=== PATIENT | male | born 1990 | race Caucasian/White ===

== ENCOUNTER 2024-06-28 10:24 | Emergency (ER) | payer OTHER ==
[~2024-06-28] VITALS: Ht 185.4 cm; Wt 143.2 kg
[2024-06-28 10:30] VITALS: TEMP 98.3
[2024-06-28] MEDS ORDERED: EMPA10TA3 PO (10:31)
[2024-06-28] MEDS ORDERED: SACU1TAB7 PO (10:31)
[2024-06-28] MEDS ORDERED: SPIR-37 PO (10:31)
[2024-06-28] MEDS ORDERED: METO200T37 PO (10:31)
[2024-06-28] MEDS ORDERED: BUME2TAB5 PO (10:31)
[2024-06-28 12:04] LABS: BASOPHILS % (AUTO) 0.3 % (0.0-2.0); EOSINOPHILS % (AUTO) 0.3 % (1.0-6.0); HEMATOCRIT 48.6 % (41-53); HEMOGLOBIN 16.2 g/dL (13.5-17.5); LYMPHOCYTES % (AUTO) 13.3 % (22.0-44.0); MEAN CORPUSCULAR HEMOGLOBIN 28.3 pg (26.0-34.0); MEAN CORPUSCULAR HGB CONC 33.3 G/dL (31.0-37.0); MEAN CORPUSCULAR VOLUME 85 fL (80-100); MONOCYTES # (AUTO) 1.3 K/uL (0.1-1.0); MONOCYTES % (AUTO) 8.2 % (2.0-9.0); NEUTROPHILS # (AUTO) 11.9 K/uL (1.8-7.7); NEUTROPHILS % (AUTO) 77.9 % (40.0-70.0); PLATELET COUNT (AUTO) 295 K/uL (150-450); RED BLOOD CELL COUNT(AUTO) 5.72 MIL/uL (4.50-5.90); RED CELL DISTRIBUTION WIDTH 14.6 % (11.5-14.5); WHITE BLOOD COUNT (AUTO) 15.3 K/uL (4.5-11.0)
[2024-06-28 12:14] LABS: ANION GAP 6 mmol/L (8-16); CALCIUM, TOTAL 8.8 mg/dL (8.8-10.5); CARBON DIOXIDE 32 mmol/L (22-29); CHLORIDE 96 mmol/L (98-107); GLOMERULAR FILTR. RATE CALC > 60 mL/min (>60); GLUCOSE,RANDOM 94 mg/dL (70-110); POTASSIUM 3.1 mmol/L (3.5-5.1); SODIUM SERUM 134 mmol/L (136-145); UREA NITROGEN, BLOOD 10 mg/dL (7-18)
[2024-06-28 12:16] LABS: APPEARANCE,URINE CLEAR (CLEAR); BILIRUBIN,URINE NEGATIVE (NEGATIVE); COLOR,URINE COLORLESS (YELLOW); GLUCOSE, URINE (UA) >=1000 mg/dL (NEGATIVE); KETONES,URINE TRACE mg/dL (NEGATIVE); LEUKOCYTE ESTERASE ,URINE NEGATIVE (NEGATIVE); NITRATE,URINE NEGATIVE (NEGATIVE); OCCULT BLOOD,URINE NEGATIVE (NEGATIVE); PROTEIN,URINE NEGATIVE (NEGATIVE); SPECIFIC GRAVITIY, URINE 1.005 (1.003-1.030); UROBILINOGEN,URINE <=1.0 mg/dL (<=1.0)
[2024-06-28 12:22] LABS: BACTERIA,URINE None Seen /HPF (None Seen); RBC,URINE 0-2 /HPF (0-2); SQUAMOUS EPITHELIAL CELL,UR Rare /LPF (None Seen); WBC,URINE None Seen /HPF (0-5)
[2024-06-28 12:26] LABS: ALANINE AMINOTRANSFERASE 35 U/L (12-78); ALKALINE PHOSPHATASE 76 U/L (46-116); ASPARTATE AMINOTRANSFERASE 24 U/L (15-37); BILIRUBIN,TOTAL 2.6 mg/dL (0.1-1.0); LIPASE 39 U/L (16-77); TOTAL PROTEIN, SERUM 7.7 g/dL (6.4-8.2)
[2024-06-28] MEDS: FAMOTIDINE 20 MG TABLET PO ONE (13:22)
[2024-06-28] MEDS: ONDANSETRON 4 MG TABLET PO ONE (13:22)
[2024-06-28] MEDS: ONDANSETRON HCL 4 MG/2 ML VIAL IVP ONE (13:53)
[2024-06-28] MEDS: FAMOTIDINE 20 MG/2 ML VIAL IVP ONE (13:56)
[2024-06-28] MEDS: MORPHINE SULFATE 4 MG/ML SYRINGE IVP ONE (13:56)
[2024-06-28] MEDS: SODIUM CHLORIDE 0.9% 1,000 ML IV ONE (14:48)
[2024-06-28] MEDS: PROCHLORPERAZINE EDISYLATE 5 MG/ML 2 ML VIAL IVP ONE (14:48)
[2024-06-28] MEDS: MAG HYDROX/ALUMINUM HYD/SIMETH 30 ML SUSPENSION UDCUP PO ONE (14:48)
[2024-06-28 15:30] VITALS: BP 126/75; PULSE 71; RESP 18; O2SAT 96
[2024-06-28] MEDS ORDERED: FAMO20 PO (15:48)
[2024-06-28] MEDS ORDERED: ONDA-104 PO (15:48)
[2024-06-28] MEDS: POTASSIUM CHLORIDE 20 MEQ ER TABLET PO ONE (15:59)
== END 2024-06-28 16:18 | disposition home or self-care (01) ==
LOC: EMS 10:25
DX: R10.10 Upper abdominal pain, unspecified (principal); K21.9 Gastro-esophageal reflux disease without esophagitis; R11.2 Nausea with vomiting, unspecified; E87.6 Hypokalemia; Z95.0 Presence of cardiac pacemaker; Z79.899 Other long term (current) drug therapy
CPT/HCPCS: 99285; 96374; 96375; 76705; 96361; 80048; 80076; 81001; 83690; 85025; 36415; J3490; J2270; J2405; J0780; J7030; Q0162